=== PATIENT | female | born 1965 | race Caucasian/White ===

== ENCOUNTER → 2016-11-17 | Outpatient (CLI) | payer BC ==
[2016-11-17 11:04] LABS: HEMOGLOBIN A1C 6.41 % (4.2-6.0); MEAN BLOOD GLUCOSE (CALC) 127.453 mg/dL
[2016-11-17 11:14] LABS: CREATININE, URINE 103.6 MG/DL (15-500)
== END ==
LOC: MOB LAB 08:29
PROVIDERS: ATTEND Internal Medicine
DX: E11.9 Type 2 diabetes mellitus without complications (principal)
CPT/HCPCS: 82043; 83036

== ENCOUNTER → 2017-02-07 | Outpatient (CLI) | payer BC ==
--- NOTE | 2017-02-07 10:12 | DI ---
RIGHT FOOT, 02/07/2017 9:14 AM: Clinical History: Right foot pain. Previous Exam: None at this facility. 3 views are submitted. There is no acute soft tissue, osseous, or joint abnormality. There is a small bony density medial to the first tarsometatarsal joint, probably related to a previous injury versus an accessory ossicle. A similar bone density is present along the dorsal surface of the tarsal navic ular bone seen on the lateral view and this is consistent with previous injury. There are bone spurs at the attachment of the Achilles tendon and the plantar fascia to the calcaneus. Reading: No acute abnormalities are identified. The exam is otherwise normal.
== END ==
LOC: MOB RAD 09:21
PROVIDERS: ATTEND Physician Assistant Medical
DX: M79.671 Pain in right foot (principal); W22.8XXA Striking against or struck by other objects, initial encounter
CPT/HCPCS: 73630

== ENCOUNTER → 2017-05-03 | Outpatient (CLI) | payer BC ==
--- NOTE | 2017-05-03 17:57 | DI ---
LEFT KNEE, 05/03/2017 1:35 PM: Clinical History: Left knee injury. Previous Exam: None at this facility. 3 views are submitted. There is no acute soft tissue, osseous, or joint abnormality. There is narrowi ng of the medial compartment indicating the patient has degenerative arthritic change. Reading: There is no acute fracture or dislocation. There is medial compartment mild arthritic change.
== END ==
LOC: MOB RAD 13:41
PROVIDERS: ATTEND Nurse Practitioner Family
DX: S89.92XA Unspecified injury of left lower leg, initial encounter (principal); M17.12 Unilateral primary osteoarthritis, left knee
CPT/HCPCS: 73562

== ENCOUNTER → 2017-05-11 | Outpatient (CLI) | payer BC ==
--- NOTE | 2017-05-11 20:50 | DI ---
MRI LEFT KNEE SCAN, 05/11/2017 2:47 PM: Clinical History: Left knee injury. Previous Exam: None at this facility. Technique: Axial, coronal, and sagittal PD and fat saturated PD; axial T1 weighted. The dedicated kne e coil could not be used because of the BMI of the patient. There is no soft tissue edema. A large joint effusion is present with a lateral plica. There is synov itis in the suprapatellar bursa. No abnormal bone signal pattern is present. There is a tear along th e anterior margin of the medial collateral ligament as well as a tear in the patellofemoral ligament and medial retinaculum with attenuation. The patella is subluxed laterally. Intermediate signal inten sity is present in the lateral collateral ligament consistent with a chronic partial tear. There is i ntermediate signal intensity in the anterior aspect of both bundles of the anterior cruciate ligament consistent with a chronic partial tear of both bundles. Similar changes are present in the superior aspect of the posterior cruciate ligament. The medial and lateral menisci and the quadriceps and popl iteus tendons and the tendons of the medial and lateral heads of the gastrocnemius muscle are normal. There is tendinosis in the proximal and distal portions of the patellar tendon. There is a grade 2 a nd possibly a grade 3 chondromalacia involving the central portion of the medial femoral condyle. The articular surfaces of the lateral and patellofemoral compartments are intact. Readin. There are partial tears of the MCL, medial patellofemoral ligament, and the medial retinaculum wi th lateral subluxation of the patella. Chronic tears are present in the ACL and PCL. There is a grade 2 and possibly a grade 3 chondromalacia of the medial femoral condyle. Tendinosis is present in the proximal and distal portions of the patellar tendon. There is a large joint effusion with a lateral p lica and synovitis. 2. The LCL, the medial and lateral menisci, the quadriceps and popliteus tendons and the tendons of the medial and lateral heads of the gastrocnemius muscle are normal. The articular surfaces of the la teral compartment and patellofemoral compartments are intact.
== END ==
LOC: MRI 14:38
PROVIDERS: ATTEND Nurse Practitioner Family
DX: M25.562 Pain in left knee (principal); S89.92XD Unspecified injury of left lower leg, subsequent encounter; S83.412A Sprain of medial collateral ligament of left knee, initial encounter; M94.262 Chondromalacia, left knee; M25.462 Effusion, left knee
CPT/HCPCS: 73721

== ENCOUNTER → 2017-06-13 | Outpatient (CLI) | payer OTHER, BC ==
--- NOTE | 2017-06-19 18:54 | EKG ---
[address] [address] Measurements Intervals Crane Rate: 89 P: 66 TN: 161 QRS: 48 QRSD: 87 T: 52 QT: 363 QTc: 410 Interpretive Statements SINUS RHYTHM WITH OCCASIONAL VENTRICULAR PREMATURE COMPLEXES Compared to ECG 07/27/2015 17:23:53 No significant changes Electronically Signed On 06-20-17 08:49:11 MDT by Jefe Ortez [email or web address]
== END ==
LOC: EKG 14:00
PROVIDERS: ATTEND Orthopaedic Surgery
DX: I10 Essential (primary) hypertension (principal); E11.9 Type 2 diabetes mellitus without complications
CPT/HCPCS: 93005; 93010

== ENCOUNTER 2018-11-11 21:55 | Inpatient (IN) ==
[2018-11-11] MEDS ORDERED: ONDANSETRON 4 MG/2 ML VIAL IVP ONE (22:10)
[2018-11-11] MEDS ORDERED: NITROGLYCERIN 0.4 MG SL TAB (BOTTLE OF 3) SL ONE (22:10)
[2018-11-11] MEDS ORDERED: Sodium Chloride 0.9% 1,000 ML PRIMARY IV ONE (22:10)
[2018-11-11] MEDS ORDERED: MORPHINE SULFATE 4 MG/1 ML IVP ONE (22:10)
[2018-11-11] MEDS ORDERED: LORazepam 2 MG/1 ML VIAL IVP ONE (22:10)
--- NOTE | 2018-11-11 22:18 | PDOC ---
Chest Pain HPI - General Chief Complaint: Chest Pain Stated Complaint: CHEST PAIN Date Seen by Provider: 11/11/18 Time Seen by Provider: 22:00 Source: Patient, EMS Exam Limitations: POSITIVE: No limitations Treatment Prior to Arrival: REPORTS: Nitroglycerin, Aspirin Nurse's Notes Reviewed & Considered: Yes - History of Present Illness Initial Comments: This is a well-developed, obese, 53-year-old female, complaining of chest pain. Patient developed left substernal chest pressure with radiation to her back, jaw on the left, left shoulder, and left arm approximately 5 PM today she has associated shortness of breath and pain worsens when she takes deep breath. She took some Tylenol approximately one hour prior to presentation here in the emergency room without relief. She then called for EMS transport to the hospital. Patient had a lap band removal surgery performed on Monday. She denies any headache, no sore throat, no hematuria or dysuria. She does have nausea but no vomiting and no diarrhea. Body Location Affected: REPORTS: Chest Timing: REPORTS: Abrupt Duration: 4-6 hours Severity: Severe Context: REPORTS: Rest Quality: REPORTS: "Pain", Pressure Radiation: REPORTS: Jaw (L), Shoulder (L), Arm (L), Back Associated Symptoms: REPORTS: Nausea, Shortness of Breath, Hurts to Breathe Modifying Factors: improves with: None Reported Similar Symptoms Previously: No Recently seen/treated/hospitalized: Yes Any Prior Injuries Related to Current Complaint?: No - Patient Home Medications Home Medications: Home Medications Blood-Glucose Meter [Contour Next Ez] 1 ea [facility] #100 ea 06/08/17 nitroglycerin 0.4 mg sublingual tablet 0.4 mg SL Q5-15M PRN #6 tab 10/05/17 multivitamin capsule 1 cap PO QDAY 11/21/17 piroxicam 10 mg capsule 10 mg PO BID #10 cap 09/14/18 chlorthalidone 25 mg tablet 12.5 mg PO QDAY #90 tab 09/28/18 dapagliflozin 5 mg-metformin ER 1,000 mg tablet,extended release 24hr 1 tab PO BID #180 tab 09/28/18 gabapentin 300 mg capsule 300 mg PO BEDTIME #90 cap 09/28/18 levothyroxine 100 mcg tablet 100 mcg PO QDAY #90 tab 09/28/18 liraglutide 0.6 mg/0.1 mL (18 mg/3 mL) subcutaneous pen injector 1.2 mg SUBCUT DAILY #9 ml 09/28/18 lorazepam 1 mg tablet 2 mg PO QPM PRN #60 tab 09/28/18 methocarbamol 750 mg tablet 750 mg PO TID PRN #90 tab 09/28/18 metoprolol tartrate 100 mg tablet 100 mg PO QDAY #90 tab 09/28/18 quinapril 40 mg tablet 40 mg PO BID #180 tab 09/28/18 rizatriptan 10 mg tablet 10 mg PO PRN #9 tab 09/28/18 simvastatin 40 mg tablet 40 mg PO QHS #90 tab 09/28/18 vilazodone 40 mg tablet 40 mg PO QDAY #90 tab 09/28/18 zolpidem 10 mg tablet 10 mg PO QHS PRN #90 tab 09/28/18 sulfamethoxazole 800 mg-trimethoprim 160 mg tablet 1 tab PO BID #20 tab 10/29/18 hydrocortisone 2.5 % topical cream 1 applic TOPICAL BID-QID PRN #20 g 11/01/18 Insulin Glargine,Hum.rec.anlog [Tojoe Apple] 20 unit SUBCUT QHS 11/09/18 Blood Sugar Diagnostic [Contour Next Test Strips] 0 unit .ROUTE .MEDSUPPLY 11/12 - Patient Allergies Allergies/Adverse Reactions: Allergies Allergy/AdvReac Type Severity Reaction Status Date / Time erythromycin base Allergy Intermediate HIVES Verified 11/11/18 21:58 pentazocine lactate Allergy Intermediate HIVES Verified 11/11/18 21:58 [From Talwin] suvorexant [From Belsomra] Allergy ITCHING Verified 11/11/18 21:58 Past Medical History - heen HEENT History: Other (please comment) Additional HEENT History: wear glasses Cardiovascular History: Hypertension, Hyperlipidemia Respiratory History: Asthma, Pneumonia, Sleep Apnea, Home Oxygen Use, Home CPAP Use, Snoring Additional Respiratory History: 3L of 02 at night Gastrointestinal History: Diverticulitis, Other (please comment) Additional Gastrointestinal History: lapband surgery 2009, Colectomy Genitourinary History: Denies History Endocrine History: Type 2 Diabetes (oral), Hypothyroidism Musculoskeletal History: Arthritis, Back Pain, Joint Pain, Osteoarthritis Prosthesis or Implant: Yes (SCREW TO RIGHT KNEE AND LEFT ANKLE) Neurological History: Migraines Additional Neurological History: peripheral neuropathy Blood Disorders: Denies History Psychiatric History: Depression, Anxiety Disorders History of Sexually Transmitted Diseases: No Cancer History: Denies History, Other (please comment) Cancer Treatment / Date(s) of Treatment: 1992 History of MDRO: No History of Other Communicable Diseases: Yes (measles, mumps, chicken pox) Alcohol Use: Rarely In the Past 12 Months, Have Used or Abuse Any Substance: None Previous Surgical History: Yes Type / Date of Surgery: right KNEE ACL reconstruction, left ankle surgery, right shoulder scope, LAPBAND SURGERY, SPLENECTOMY, FULL HYSTERECTOMY, tonsillectomy, appendectomy, cholecystectomy, COLONOSCOPY, colectomy Anesthesia Reactions: Yes (PONV) Malignant Hyperthermia: No Significant Family History: Heart disease Additional Family History: mitral valve prolapse-sister. valve replacement- mother ROS - Limitations ROS Limitations: No Limitations Constitution: REPORTS: Denies Symptoms Cardiovascular: REPORTS: Chest Pain Respiratory: REPORTS: Hurts To Breathe, Shortness Of Breath Neurological: REPORTS: Denies Neuro Symptoms Gastrointestinal: REPORTS: Abdominal Pain, Nausea Endocrine: REPORTS: Denies Symptoms Musculoskeletal: REPORTS: Back Pain Genitourinary: REPORTS: Denies Symptoms Eyes: REPORTS: Denies Symptoms ENT: REPORTS: Denies Symptoms Skin: REPORTS: Denies Skin Symptoms Lympathic: REPORTS: Denies Lympathic Symptoms Immunologic: POSITIVE: Denies Symptoms Psychiatric: POSITIVE: Anxiety Chest Pain PE - General Appearance General Appearance: REPORTS: Alert, Cooperative, No Evidence of Trauma, Severe Distress - HEENT HEENT: POSITIVE: Head Inspection Nml, Eyes Inspection Nml, Ears Inspection Nml, Nose Inspection Nml, Oral/Dental Inspect. Nml, Pharynx Inspect. Nml, PERRL, EOMI - Neck Neck: REPORTS: Normal Inspection - Respiratory Respiratory: REPORTS: No Respiratory Distress, Breath Sounds Normal - Cardiovascular Cardiovascular: REPORTS: Regular Rate and Rhythm, Heart Sounds Normal, Equal Pulses, Strong Pulses, No Murmur, No Gallop, No Friction Rub, No JVD Peripheral Pulses: Radial (L): 4+ - Abdomen Abdomen: Soft: (All Quadrants), Normal Bowel Sounds: (All Quadrants), No Splenomegaly: (All Quadrants), No Hepatomegaly: (All Quadrants), No Guarding: (All Quadrants), No Rebound: (All Quadrants), No Palpable Pulse: (All Quadrant s), No Palpabale Mass: (All Quadrants), No Distention: (All Quadrants), No Rigidity: (All Quadrants), Tenderness Noted: (All Quadrants) - Skin Skin: REPORTS: Intact, Normal For Race, Warm, Dry, No Rash - Extremities Extremity: Non-Tender: (All Extremities), Normal ROM: (All Extremities), Normal Inspection: (All Extremities), Pelvis Stable: (All Extremities) - Neurological / Psychological Neurological: POSITIVE: Oriented X3, Motor Normal, Sensation Normal Chest Pain Progress - Results Reviewed by me Xrays/CTs/US Reviewed by me: Yes Discussed with Radiologist: Yes Lab Results Reviewed by Me: Yes CBC and BMP: 11/11/18 22:24 11/11/18 22:24 Lab Results:: Laboratory Results 11/11/18 11/11/18 11/11/18 22:24 22:24 22:24 WBC 14.86 H RBC 4.49 Hgb 14.3 Hct 43.6 MCV 97.1 MCH 31.8 H MCHC 32.8 L RDW Std Deviation 50.6 H RDW Coeff of Sd 14.6 H Plt Count 366 H MPV 10.4 Immature Gran % (Auto) 0.2 Neut % (Auto) 73.3 Lymph % (Auto) 12.7 [place] % (Auto) 7.0 Eos % (Auto) 6.6 Baso % (Auto) 0.2 Immature Gran # (Auto) 0.03 Neut # (Auto) 10.90 Lymph # (Auto) 1.88 [place] # (Auto) 1.04 H Eos # (Auto) 0.98 Baso # (Auto) 0.03 WBC Morphology Comment Normal morphology Plt Morphology Comment Normal morphology RBC Morph Comment Normal morphology D-Dimer 2.12 H Sodium 139 Potassium 4.3 Chloride 101 Carbon Dioxide 30 Anion Gap 8 BUN 12 Creatinine 0.7 Estimated GFR > 60 BUN/Creatinine Ratio 17.14 Glucose 176 H Calculated Osmolality 291.0 Calcium 9.0 Total Bilirubin 0.5 AST 53 H ALT 87 H Alkaline Phosphatase 91 CK-MB (CK-2) Troponin I Handheld C-Reactive Protein 5.5 H NT-Pro-B Natriuret Pep 158 H Total Protein 6.2 Albumin 3.7 Globulin 2.5 Albumin/Globulin Ratio 1.40 TSH 11/11/18 11/11/18 22:24 22:24 WBC RBC Hgb Hct MCV MCH MCHC RDW Std Deviation RDW Coeff of Sd Plt Count MPV Immature Gran % (Auto) Neut % (Auto) Lymph % (Auto) [place] % (Auto) Eos % (Auto) Baso % (Auto) Immature Gran # (Auto) Neut # (Auto) Lymph # (Auto) [place] # (Auto) Eos # (Auto) Baso # (Auto) WBC Morphology Comment Plt Morphology Comment RBC Morph Comment D-Dimer Sodium Potassium Chloride Carbon Dioxide Anion Gap BUN Creatinine Estimated GFR BUN/Creatinine Ratio Glucose Calculated Osmolality Calcium Total Bilirubin AST ALT Alkaline Phosphatase CK-MB (CK-2) 0.38 Troponin I Handheld 0.010 C-Reactive Protein NT-Pro-B Natriuret Pep Total Protein Albumin Globulin Albumin/Globulin Ratio TSH 2.15 EKG Interpreted/Reviewed By Me:: Yes (normal sinus rhythm with rate of 77 beats a minute.) EKG Interpretation:: POSITIVE: Normal Sinus Rhythm, Normal ST/T - Patient's Progress Pain Medication Addressed: POSITIVE: Yes Re-Examine Time: 01:07 Status: POSITIVE: Improved MDM / ED Course: Patient was evaluated, an IV started, blood drawn and sent to the lab for studies, CT examination of chest and abdomen as well as EKG were obtained. Findings: CBC shows white count of 14.86 and platelets are 366. D-dimer is elevated at 2.12. TSH is normal at 2.15. CMP shows glucose of 176, AST of 53, ALT of 87. CRP is elevated at 5.5 area BNP is 158. Chest x-ray shows no acute cardiopulmonary decompensation. CTA of the chest shows no pulmonary embolism present, there is a small left pleural effusion. Respiratory panel is negative. Troponin and CK-MB are normal. EKG as interpreted by me, shows a sinus rhythm with a rate of 77 beats a minute and no ST changes. CT of the abdomen shows large amount of free air likely postsurgical, small high density foci on the left upper quadrant possibly related to remote splenectomy, multiple small pockets of hematoma adjacent to the stomach, no bowel obstruction, remote cholecystectomy and appendectomy. Assessment: #1 Chest pain with normal enzymes and EKG. #2 postoperative abdominal pain. Plan: Patient is being admitted to rule out GA. Quality Measure Initiative: CP/AMI: POSITIVE: EKG, ASA Quality Measure Initiative: CAP: POSITIVE: CXR or CT - Consult Consult (If Yes, Name of Consulting MD & Time Called): Yes (Dr. Marquez, 0100 hrs) Consulting MD will see pt:: POSITIVE: [facility] Admit Counseled: POSITIVE: Patient, Family, RE: Lab Results, RE: Radiology Results, RE: DX, RE: Need for F/U Patient Care Time - Estimated PCT Patient Care Time (In Minutes): 60 Vital Signs - Recent Vital Signs Vital Signs: Vital Signs (Last 8 hours) Temp Pulse Resp BP Pulse Ox 11/11/18 21:57 98.0 F 76 20 138/87 90 - VS Reviewed Vital Signs Reviewed: Yes Discharge Clinical Impression: Chest pain Discharge Disposition: Admit to Inpatient Condition: Stable Patient Instructions Given at Discharge: Chest Pain (ED) Follow Up With: EDWARD REA [Primary Care Provider] - Date Decision to Admit to Inpatient: 11/12/18 Time Decision to Admit to Inpatient: 01:07
[2018-11-11 22:26] LABS: BASOPHILS # (AUTO) 0.03 10*3/UL; BASOPHILS % (AUTO) 0.2 % (0-1); EOSINOPHILS # (AUTO) 0.98 10*3/UL; EOSINOPHILS % (AUTO) 6.6 % (0-8); Hematocrit [HCT] 43.6 % (37.0-47.0); Hemoglobin [HGB] 14.3 g/dL (12.0-16.0); LYMPHOCYTES # (AUTO) 1.88 10*3/uL; MEAN CORPUSCULAR HEMOGLOBIN 31.8 PG (27-31); MEAN CORPUSCULAR HGB CONC 32.8 g/dL (33-37); MEAN CORPUSCULAR VOLUME 97.1 FL (81-99); MEAN PLATELET VOLUME 10.4 FL (7.4-12.2); MONOCYTES # (AUTO) 1.04 10*3/UL (0.3-0.8); NEUTROPHILS % (AUTO) 73.3 % (50-80); RED BLOOD COUNT 4.49 10^6/uL (4.20-5.40)
[2018-11-11 22:30] LABS: PLATELET MORPHOLOGY COMMENT NORMAL MORPHOLOGY (NORM); RBC MORPHOLOGY COMMENT NORMAL MORPHOLOGY (NORM); WBC MORPHOLOGY COMMENT NORMAL MORPHOLOGY (NORM)
[2018-11-11 22:43] LABS: BLOOD UREA NITROGEN 12 mg/dL (7-22); BUN/CREATININE RATIO 17.14 (6-20); SERUM ALBUMIN 3.7 g/dL (3.5-4.8)
[2018-11-12] MEDS ORDERED: MORPHINE SULFATE 4 MG/1 ML IVP ONE (00:35)
[2018-11-12] MEDS ORDERED: KETOROLAC 15 MG/1 ML VIAL IVP ONE (00:35)
--- NOTE | 2018-11-12 00:45 | DI ---
EXAM: XR Chest, 1 View CLINICAL HISTORY: cp TECHNIQUE: Frontal view of the chest. COMPARISON: January 02, 2018. FINDINGS: Lungs: Unremarkable. No consolidation. Pleural space: Unremarkable. No pneumothorax. Heart: Unremarkable. No cardiomegaly. Mediastinum: Unremarkable. Bones/joints: Unremarkable. There is free air subjacent to the right hemidiaphragm. IMPRESSION: Free air subjacent to the left hemidiaphragm. This represent sequela of bowel perforation or recent surgery. No acute cardiopulmonary process. [employer] 11/12/18 00:57 Call Doctor Regarding Above results, called Dr. Aleksandar Mccarthy on 11/12 00:58 (-07:00)
--- NOTE | 2018-11-12 00:51 | DI ---
EXAM: CT Angiography Chest With Intravenous Contrast CLINICAL HISTORY: cp/sob TECHNIQUE: Axial computed tomographic angiography images of the chest with intravenous contrast using pulmonary embolism protocol. MIP reconstructed images were created and reviewed. COMPARISON: No relevant prior studies available. FINDINGS: Normal caliber thoracic aorta. No pericardial effusion. Patchy atelectasis in the bilateral lower lobes. Small left pleural effusion. No central PE. More peripheral branches are suboptimally evaluated due to respiratory motion. There is free air in the upper abdomen. IMPRESSION: No central PE. More peripheral branches are suboptimally evaluated due to respiratory motion. Bilateral lower lobe patchy atelectasis. Small left pleural effusion. Free air in the upper abdomen. See separate report for CT of the abdomen and pelvis.
--- NOTE | 2018-11-12 01:07 | DI ---
EXAM: CT Abdomen and Pelvis With Intravenous Contrast CLINICAL HISTORY: pain s/p surgery on Monday TECHNIQUE: Axial computed tomography images of the abdomen and pelvis with intravenous contrast. COMPARISON: No relevant prior studies available. FINDINGS: Reported history of lap band removal surgery 2 days prior. There is large amount of free air. There is some stranding, edema, and complex free fluid in the left upper quadrant. Small high density foci subjacent to the left hemidiaphragm, for example on image 27 of series 2. Additionally, there are small pockets of complex fluid noted adjacent to the proximal stomach, for example on image 40 of series 20, measuring approximately 3 x 2 cm in the largest component. Remote splenectomy and cholecystectomy. Liver, pancreas, adrenals, and kidneys are within normal limits. Diverticulosis without evidence of diverticulitis. No bowel obstruction. Appendectomy clips. Absent uterus. Normal caliber abdominal aorta. Stranding and edema in the anterior abdominal wall, expected postsurgically. No aggressive osseous abnormalities. IMPRESSION: Reported history of lap band removal surgery 2 days prior. There is large amount of free air, which is likely postsurgical. However, if there is increasing abdominal pain and distention and peritoneal signs, leak/perforation cannot be definitively excluded. There is small amount of complex free fluid in the left upper quadrant. Small high density foci in the left upper quadrant may be related to remote splenectomy. Active extravasation is considered less likely given that there is only a small amount of complex free fluid without evidence of hemoperitoneum in the remainder of abdomen and pelvis. Multiple small pockets of hematoma adjacent to the stomach. Abscess is considered less likely. Recommend followup. No bowel obstruction. Remote cholecystectomy and appendectomy. No hydronephrosis. [employer] 11/12/18 00:57 Call Doctor Regarding Above results, called Dr. Aleksandar Mccarthy on 11/12 00:58 (-07:00)
[2018-11-12] MEDS ORDERED: MORPHINE SULFATE 2 MG/1 ML IVP PRN ×2 (01:19→16:53)
--- NOTE | 2018-11-12 01:25 | PDOC ---
HPI - History of Present Illness History of Present Illness: This is a very nice 53-year-old female comes into the ER with the complaint of chest pain this started the abruptly mainly on the left side of the chest with p ressure and radiation to her back and jaw, left shoulder, left R arm also has shortness of breath with it and hurts to take a deep breath EMS was called and transported to the hospital patient had a lap band removal surgery performed on Monday. She received aspirin and nitroglycerin so received the Toradol and Ativan which helped with her pain and anxiety Past Medical History Medical History: 1. Diabetes mellitus type II. 2. Hypertension. 3. Hypothy roidism. 4. Obesity. 5. Hypercholesterolemia. 6. Diverticular disease. Surgical History: 1. Left hemicolectomy today. 2. Hysterectomy. 3. Lap band surgery. 4. Cholecystectomy. 5. 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 Tobacco Use: Never Smoker In the Past 12 Months, Have Used or Abuse Any of the Following Substance: None Medication / Allergies Home Medications: Home Medications Medication Instructions Recorded Confirmed Type Blood-Glucose Meter [Contour Next 1 ea AC #100 ea 06/08/17 11/12/18 Rx Ez] nitroglycerin 0.4 mg sublingual 0.4 mg SL Q5-15M PRN #6 tab 10/05/17 11/12/18 Rx tablet multivitamin capsule 1 cap PO QDAY 11/21/17 11/12/18 History piroxicam 10 mg capsule 10 mg PO BID #10 cap 09/14/18 11/12/18 Rx chlorthalidone 25 mg tablet 12.5 mg PO QDAY #90 tab 09/28/18 11/12/18 Rx dapagliflozin 5 mg-metformin ER 1 tab PO BID #180 tab 09/28/18 11/12/18 Rx 1,000 mg tablet,extended release 24hr gabapentin 300 mg capsule 300 mg PO BEDTIME #90 cap 09/28/18 11/12/18 Rx levothyroxine 100 mcg tablet 100 mcg PO QDAY #90 tab 09/28/18 11/12/18 Rx liraglutide 0.6 mg/0.1 mL (18 mg/3 1.2 mg SUBCUT DAILY #9 ml 09/28/18 11/12/18 Rx mL) subcutaneous pen injector lorazepam 1 mg tablet 2 mg PO QPM PRN #60 tab 09/28/18 11/12/18 Rx methocarbamol 750 mg tablet 750 mg PO TID PRN #90 tab 09/28/18 11/12/18 Rx metoprolol tartrate 100 mg tablet 100 mg PO QDAY #90 tab 09/28/18 11/12/18 Rx quinapril 40 mg tablet 40 mg PO BID #180 tab 09/28/18 11/12/18 Rx rizatriptan 10 mg tablet 10 mg PO PRN #9 tab 09/28/18 11/12/18 Rx simvastatin 40 mg tablet 40 mg PO QHS #90 tab 09/28/18 11/12/18 Rx vilazodone 40 mg tablet 40 mg PO QDAY #90 tab 09/28/18 11/12/18 Rx zolpidem 10 mg tablet 10 mg PO QHS PRN #90 tab 09/28/18 11/12/18 Rx sulfamethoxazole 800 1 tab PO BID #20 tab 10/29/18 11/12/18 Rx mg-trimethoprim 160 mg tablet hydrocortisone 2.5 % topical cream 1 applic TOPICAL BID-QID PRN #20 g 11/01/18 11/12/18 Rx Insulin Glargine,Hum.rec.anlog 20 unit SUBCUT QHS 11/09/18 11/12/18 History [Oralia Apple] Blood Sugar Diagnostic [Contour 0 unit .ROUTE .MEDSUPPLY 11/12/18 11/12/18 History Next Test Strips] Allergies/Adverse Reactions: Allergies Allergy/AdvReac Type Severity Reaction Status Date / Time erythromycin base Allergy Intermediate HIVES Verified 11/11/18 21:58 pentazocine lactate Allergy Intermediate HIVES Verified 11/11/18 21:58 [From Talwin] suvorexant [From Belsomra] Allergy ITCHING Verified 11/11/18 21:58 Review of Systems - Review of Systems All Systems: Reviewed & No Additional Complaints Except as Stated - Constitutional Constitutional: REPORTS: General Health Fair - Respiratory Respiratory: REPORTS: Pleuritic Pain. DENIES: Cough - Cardiovascular Cardiovascular: REPORTS: Chest Pain. DENIES: Edema, Syncope, Palpitations - Gastrointestinal Gastrointestinal / Abdominal: REPORTS: Nausea. DENIES: Vomiting, Diarrhea, Constipation, Abdominal Pain, Bloody Stool Exam - Vitals Vital Signs: Vital Signs Temperature 98.0 F Temperature Source Temporal Artery Scan Pulse Rate [Pulse Oximeter] 76 Respiratory Rate 20 Blood Pressure [Right Arm] 138/87 Pulse Ox 90 Oxygen Flow Rate 3 Oxygen Delivery Method Nasal Cannula Height 5 ft 2 in Weight 295 lb - General General Appearance: Cooperative, Mild Distress, Morbidly Obese - Head Head Exam: Normal Inspection, Normocephalic, Atraumatic - Eye Eye Exam: POSITIVE: Normal Appearance, PERRL, EOMI, No Scleral Icterus - Neck Neck Exam: Normal Inspection, Full ROM, No Tenderness, No Lymphadenopathy, No Thyromegaly, JVP is not Raised - Respiratory Respiratory Exam: POSITIVE: Clear to Auscultation - Bilaterally, Breathing Non Labored, Normal To Percussion, Normal to Percussion and Palpation - Cardiovascular Cardiovascular Exam: POSITIVE: RRR, No Murmur, No Clicks, No Gallops, No Rubs, PMI Non-Displaced - GI/Abdominal GI/Abdominal Exam: POSITIVE: Normal Bowel Sounds, Non Tender, Non Distended, Soft, No Masses, No Hepatomegaly, No Splenomegaly, No Organomegaly - Extremities Extremities Exam: POSITIVE: No Clubbing Present, No Edema Present, No Cyanosis Present - Neurological Neurological Exam: POSITIVE: Alert, Oriented x 3, No Facial Droop, Speech Intact / Clear, Moves All Extremities Equally Results - Labs CBC and BMP: 11/11/18 22:24 11/11/18 22:24 Assessment and Plan - Patient Problems (1) Chest pain Current Visit: Yes Status: Acute Comment: CT of the chest no PE troponins and negative she did have a stress test last year which was positive with reversible defects apparently this was a false positive patient did have a catheter I do not see those results are unable to find them was admit the patient to rule out with serial troponins treat pain h ydrate Lexiscan stress test in a.m. This can therefore be secondary to lap band removal with nerve irritation as well we'll consider other diagnoses once cardiac issues have been ruled out spoke with patient and her Evelyne her friend at the bedside and Dr. Mccarthy Code(s): R07.9 - Chest pain, unspecified
[2018-11-12] MEDS ORDERED: CALCIUM CARBONATE 500 MG (TUMS) CHEWABLE TABLET PO PRN (01:44)
[2018-11-12] MEDS ORDERED: Methocarbamol Tab 500 MG TAB PO PRN (01:44)
[2018-11-12] MEDS ORDERED: NITROGLYCERIN 0.4 MG SL TAB (BOTTLE OF 3) SL PRN ×2 (01:44)
[2018-11-12] MEDS ORDERED: Non-Formulary Drug (Rizatriptan Benzoate [Maxalt] 10 MG) PO PRN (01:44)
[2018-11-12] MEDS ORDERED: ZOLPIDEM 10 MG TABLET PO PRN (01:44)
[2018-11-12] MEDS ORDERED: LIDOCAINE W/ SODIUM BICARB 0.5 ML SYR SUBD PRN (01:44)
[2018-11-12] MEDS: HEPARIN 5000 UNIT/1 ML SUBCUT SCH ×3 (02:22→19:12)
[2018-11-12] MEDS: MORPHINE SULFATE 2 MG/1 ML IVP PRN ×3 (03:17→09:40)
[2018-11-12] MEDS: Sodium Chloride 0.9% 1,000 ML PRIMARY IV SCH ×3 (04:08→23:55)
[2018-11-12 05:08] LABS: BASOPHILS # (AUTO) 0.04 10*3/UL; BASOPHILS % (AUTO) 0.3 % (0-1); EOSINOPHILS # (AUTO) 1.02 10*3/UL; EOSINOPHILS % (AUTO) 7.2 % (0-8); Hematocrit [HCT] 43.6 % (37.0-47.0); LYMPHOCYTES # (AUTO) 2.62 10*3/uL; MEAN CORPUSCULAR HEMOGLOBIN 31.3 PG (27-31); MEAN CORPUSCULAR HGB CONC 32.1 g/dL (33-37); MEAN CORPUSCULAR VOLUME 97.3 FL (81-99); MEAN PLATELET VOLUME 11.4 FL (7.4-12.2); MONOCYTES # (AUTO) 1.09 10*3/UL (0.3-0.8); MONOCYTES % (AUTO) 7.7 % (5-15); NEUTROPHILS # (AUTO) 9.39 10*3/UL; NEUTROPHILS % (AUTO) 66.1 % (50-80); RED BLOOD COUNT 4.48 10^6/uL (4.20-5.40)
[2018-11-12 05:19] LABS: PLATELET MORPHOLOGY COMMENT NORMAL MORPHOLOGY (NORM); RBC MORPHOLOGY COMMENT NORMAL MORPHOLOGY (NORM); WBC MORPHOLOGY COMMENT NORMAL MORPHOLOGY (NORM)
[2018-11-12 05:20] LABS: BLOOD UREA NITROGEN 12 mg/dL (7-22); SERUM ALBUMIN 3.6 g/dL (3.5-4.8)
[2018-11-12] MEDS: LEVOTHYROXINE 100 MCG TABLET PO SCH (05:39)
[2018-11-12] MEDS ORDERED: SULFAMETHOXAZOLE/TRIMETHOPRIM 800/160 MG TABLET PO SCH (09:00)
[2018-11-12] MEDS ORDERED: METFORMIN HCL PO SCH (09:00)
[2018-11-12] MEDS ORDERED: DAPAGLIFLOZIN PO SCH (09:00)
[2018-11-12] MEDS ORDERED: methylPREDNISolone 125 MG/2 ML VIAL IVP ONE (10:28)
--- NOTE | 2018-11-12 10:31 | PDOC(PROG) ---
Interval History: Patient looks much better than yesterday still having chest pain. When examined and I pushed on her sternum this reproduced the pain on the left side of her body but not on the right side no nausea no vomiting no shortness of breath able to take deeper breaths without pain Objective : Data - Labs CBC and BMP: 11/12/18 04:20 11/12/18 04:20 Objective : Exam - General General Appearance: Cooperative, Obese - Respiratory Respiratory Exam: Clear to Auscultation - Bilaterally, Breathing Non Labored, Normal To Percussion, Normal to Percussion and Palpation - Cardiovascular Cardiovascular Exam: RRR, No Murmur, No Clicks, No Gallops, No Rubs, PMI Non- Displaced - GI/Abdominal GI/Abdominal Exam: Normal Bowel Sounds, Non Tender, Non Distended, Soft, No Masses, No Hepatomegaly, No Splenomegaly, No Organomegaly Assessment and Plan - Patient Problems (1) Chest pain Current Visit: Yes Status: Acute Code(s): R07.9 - Chest pain, unspecified (2) Costochondral chest pain Current Visit: Yes Status: Acute Code(s): R07.1 - Chest pain on breathing (3) Costochondritis Current Visit: Yes Status: Acute Comment: Most likely this is the diagnosis considering pain is reproducible with palpation with same intensity as her usual chest pain this could've come on from her lap band removal I will give her 1 dose of steroids to see if this helps CT of the chest abdomen and pelvis pre-much no acute changes other than the air which is attributed to recent surgery stress test today and tomorrow morning at 8:30. She did have a stress test 1 year ago patient tells me it was a false positive since her catheter was negative Code(s): M94.0 - Chondrocostal junction syndrome [Tietze]
[2018-11-12] MEDS: LIRAGLUTIDE 1.2 MG SUBCUT SCH (11:02)
[2018-11-12] MEDS: QUINAPRIL 20 MG TABLET PO SCH ×2 (11:02→23:32)
[2018-11-12] MEDS: Metoprolol TARTRATE Tab 50 MG TAB PO SCH (11:02)
[2018-11-12] MEDS: CHLORTHALIDONE 50 MG TABLET PO SCH (11:02)
[2018-11-12] MEDS: VILAZODONE HCL 40 MG PO SCH (11:03)
[2018-11-12] MEDS: PANTOPRAZOLE IV 40 MG VIAL IVP SCH (11:03)
[2018-11-12 11:16] LABS: BILIRUBIN,URINE NEGATIVE (NEG); CLARITY,URINE CLEAR (CLEAR); COLOR,URINE YELLOW (Y); GLUCOSE, URINE (UA) NEGATIVE (NEG); OCCULT BLOOD,URINE NEGATIVE (NEG); PH,URINE 6.5 (5.0-8.5); PROTEIN,URINE NEGATIVE (NEG); UROBILINOGEN,URINE 0.2 EU/dL (0.2)
[2018-11-12 11:17] LABS: URINE SAMPLE TYPE CLEAN CATCH URINE
[2018-11-12] MEDS ORDERED: cefTRIAXone Inj 2 GM in Sodium Chloride 0.9% 100 ML IV SCH (13:00)
[2018-11-12] MEDS ORDERED: LIDOCAINE HCL 2 % 10 ML JELLY URO-JECT TOPICAL PRN (13:28)
[2018-11-12] MEDS ORDERED: FUROSEMIDE 10 MG/1 ML - 4 ML IVP ONE (13:29)
[2018-11-12 13:31] LABS: ABG BASE EXCESS 4 MMOL/L (-2-2); ABG OXYGEN SATURATION 94 % (90-100); ABG PCO2 52 MMHG (34-38); ABG PH 7.36 (7.35-7.45); ABG PO2 75 MMHG (65-75); ALLEN TEST N; COLLECTION SITE L RADIAL
[2018-11-12] MEDS ORDERED: Acetaminophen 1000mg Inj 1,000 MG/100 ML VIAL IV PRN (13:33)
--- NOTE | 2018-11-12 13:54 | EKG ---
[address] [address] Measurements Intervals Hansen Rate: 77 P: 21 RI: 177 QRS: 9 QRSD: 90 T: 17 QT: 370 QTc: 401 Interpretive Statements SINUS RHYTHM LOW QRS VOLTAGE IN PRECORDIAL LEADS [QRS DEFLECTION < 1.0 mV IN CHEST LEADS] [email or web address]
[2018-11-12 14:23] LABS: BASOPHILS # (AUTO) 0.02 10*3/UL; BASOPHILS % (AUTO) 0.1 % (0-1); EOSINOPHILS # (AUTO) 0.73 10*3/UL; EOSINOPHILS % (AUTO) 4.4 % (0-8); Hematocrit [HCT] 45.1 % (37.0-47.0); Hemoglobin [HGB] 14.7 g/dL (12.0-16.0); LYMPHOCYTES # (AUTO) 1.89 10*3/uL; MEAN CORPUSCULAR HEMOGLOBIN 31.7 PG (27-31); MEAN CORPUSCULAR HGB CONC 32.6 g/dL (33-37); MEAN CORPUSCULAR VOLUME 97.2 FL (81-99); MEAN PLATELET VOLUME 11.1 FL (7.4-12.2); MONOCYTES # (AUTO) 0.77 10*3/UL (0.3-0.8); MONOCYTES % (AUTO) 4.6 % (5-15); NEUTROPHILS % (AUTO) 79.1 % (50-80); RED BLOOD COUNT 4.64 10^6/uL (4.20-5.40)
[2018-11-12 14:24] LABS: PLATELET MORPHOLOGY COMMENT NORMAL MORPHOLOGY (NORM); RBC MORPHOLOGY COMMENT NORMAL MORPHOLOGY (NORM); WBC MORPHOLOGY COMMENT NORMAL MORPHOLOGY (NORM)
[2018-11-12 14:31] LABS: BLOOD UREA NITROGEN 10 mg/dL (7-22); BUN/CREATININE RATIO 16.66 (6-20); SERUM ALBUMIN 3.8 g/dL (3.5-4.8)
[2018-11-12] MEDS ORDERED: Ertapenem Inj 1 GM in Sodium Chloride 0.9% 100 ML IV SCH (16:00)
[2018-11-12] MEDS ORDERED: ERTAPENEM 1 GM VIAL ONE (16:12)
--- NOTE | 2018-11-12 16:48 | DI ---
CT CTA Chest Non-Coronary WWO 11/12/2018 12:57 PM History: [facility] [place]st pain Comparison: Chest x-ray, CT PE from 11/11/2018. Procedure: CT angiography of the pulmonary arteries was performed after the administration of 68 mL o f Isovue intravenous contrast. Findings: Patient body habitus creates artifact that limits evaluation of fine anatomic detail. There is normal opacification of the main and proximal segmental pulmonary arteries with no evidence of fi lling defect. Evaluation of the lungs demonstrates bilateral lower lobe atelectasis; associated airsp sarah disease cannot be excluded. There are small left and tiny right pleural effusions. There is no pn eumothorax. There is no mediastinal or hilar lymphadenopathy. The aorta and branch vessels demonstrat e normal course and caliber. Heart size is is at the upper limits of limits with no pericardial effus ion. The thyroid exhibits normal CT morphology. The osseous structures not significantly changed. There is no evidence of acute or healing rib fractu res. Impression: 1. No main or proximal segmental pulmonary embolism. 2. Bilateral lower lobe atelectasis; associated airspace disease cannot be excluded. There are small left and tiny right pleural effusions. There is no pneumothorax. 3. Borderline cardiomegaly without pericardial effusion.
--- NOTE | 2018-11-12 16:58 | DI ---
CT Abdomen/Pelvis W Contrast 11/12/2018 12:57 PM History: [facility] [place] Comparison: CT abdomen/pelvis from the previous day. Technique: Imaging was performed with a multi-detector CT scanner. Data acquisition was obtained from the dome of the diaphragm through the pubic symphysis without oral contrast and after the uneventful administration of 68 mL of Isovue intravenous contrast material. Multiplanar reformations were perfo rmed. Findings: There are postsurgical changes in the left upper quadrant adjacent to the gastric fundus, a s well as the ventral abdominal wall. The spleen is absent. There is an increased amount of free intr aperitoneal air, most notable along the anterior aspect of the liver. A heterogeneous collection of f luid and gas in the left upper quadrant, posterior to the fundus of the stomach is slightly larger th an the prior examination. There are surgical clips in the gallbladder fossa. There is gas in the tacho hepatis. There is normal CT appearance of the liver, adrenal glands, kidneys, and pancreas. Hollow viscus organs demonstrate otherwise normal course and caliber. There is colonic diverticulosis without CT evidence of acute div erticulitis. Surgical material is again noted in the right lower quadrant. No abdominopelvic lymphade nopathy is present. Vascular structures are intact. There is a fat and gas containing umbilical herni a. There is a Paulson catheter in the decompressed urinary bladder. The uterus is absent. There is surg ical material in the adnexa, which are better evaluated with pelvic ultrasound. The osseous structures are not significantly changed. Impression: 1. There are postsurgical changes in the left upper quadrant. There is an increased amount of free in traperitoneal air and a slightly larger collection of fluid and gas in the left upper quadrant engraving supervisor ior to the fundus of the stomach. These findings raise concern for hollow viscus perforation in the r eported setting of recent surgical intervention.
--- NOTE | 2018-11-12 18:36 | PDOC(PROG) ---
Date of Service: 11/12/18 Time of Service: 18:33 Interval History: This is a 53-year-old female who was admitted on second postoperative day after having removal of a gastric band. She is doing fine initially but on Monday developed down pain and shortness of breath. Patient had a CTA which showed no evidence of PE. Patient has CT scan of the abdomen showed free air which measures thought to be postoperative changes. Patient continue to have an elevated white count and increasing abdominal pain and shortness of breath. Repeat films show that the patient has more free air. There is still no evidenc e of PEs. Her surgeon, Dr. Villegas, quantity Gastrografin swallow to see if again identified with the leak is from because of her size and said do a Gastrografin followed by CT scan. The CT scan now shows of leak of fluid in the fundus of the stomach with the previous band was. Objective : Data - Labs CBC and BMP: 11/12/18 14:05 11/12/18 14:05 - Vital Signs Vital Signs and I&O: Vital Signs - Last Taken Temperature 98.1 F 11/12/18 11:04 Pulse Rate 104 H 11/12/18 11:04 Respiratory Rate 24 11/12/18 11:04 Blood Pressure 136/98 11/12/18 11:04 Pulse Ox 94 11/12/18 15:10 Intake and Output (24hr x 4 totals) 11/10/18 11/11/18 11/12/18 11/13/18 05:59 05:59 05:59 05:59 Intake Total 900 / 900 900 / 900 Output Total 1450 / 1450 Balance 900 / 900 -550 / -550 Objective : Exam - General General Appearance: Cooperative, Mild Distress - Eye Eye Exam: PERRL - Respiratory Respiratory Exam: Clear to Auscultation - Bilaterally - GI/Abdominal GI/Abdominal Exam: Normal Bowel Sounds, Distended Additional GI/Abdominal Exam Details: Patient's tender to touch throughout her abdomen. There is some rebound. Assessment and Plan - Patient Problems (1) Perforated abdominal viscus Current Visit: Yes Status: Acute - Assessment / Plan Additional Assessment/Plan Details: At this point is liquid the patient has a perforated stomach. She will need surgery to repair the perforation. is coming in to the the surgery. Risks benefits of surgery have been explained to her she has signed consents. Patient is already receiving Invanz for antibiotic therapy.
--- NOTE | 2018-11-12 18:39 | DI ---
CT Abdomen WO Contrast 11/12/2018 5:34 PM History: [facility] [place]perforated [place] ^with oral Gastrografin contrast Comparison: CT abdomen/pelvis from earlier the same day. Technique: Imaging was performed with a multi-detector CT scanner. Approximately 100 mL of Gastrograf in enteric contrast was administered prior to scanning. Data acquisition was obtained from the dome o f the diaphragm through the pubic symphysis without intravenous contrast material immediately followi ng ingestion of the enteric contrast and again at 30 minutes. Multiplanar reformations were performed . Findings: There is an extraluminal collection of enteric contrast in the left upper quadrant along th e posterior aspect of the fundus of the stomach in the distribution of the previously noted heterogen eous fluid and gas collection. This is consistent with hollow viscus perforation. There is no extralu rachna contrast detected along the course of the small bowel. The amount of free intraperitoneal air h as not significantly changed from the most recent exam. Contrast is noted in the renal collecting system. A Paulson catheter is present in the decompressed uri nary bladder. Left greater than right lung base atelectasis is present; associated airspace disease is not excluded . The remainder of the exam is unchanged. Impression: 1. There is an extraluminal collection of enteric contrast in the left upper quadrant as outlined abo ve. These findings are consistent with hollow viscus perforation. These findings were discussed in person with Dr. López of General Surgery at 1815 on the day of the exam.
[2018-11-12] MEDS ORDERED: LIDOCAINE W/ SODIUM BICARB 0.5 ML SYR ONE (18:45)
[2018-11-12] MEDS ORDERED: MIDAZOLAM HCL 2 MG/2 ML VIAL ONE (18:52)
[2018-11-12] MEDS ORDERED: REMIFENTANIL 1 MG/1 ML IV ONE (18:52)
[2018-11-12] MEDS ORDERED: fentaNYL Inj 100 MCG/2 ML VIAL ONE ×3 (18:52→23:16)
[2018-11-12] MEDS ORDERED: REMIFENTANIL HCL 2 MG VIAL IV ONE (18:53)
[2018-11-12] MEDS ORDERED: KETAMINE HCL 100 MG/2 ML SYRINGE IV ONE (18:56)
[2018-11-12] MEDS ORDERED: PROPOFOL 10 MG/1 ML (200 MG/20 ML) VIAL IV ONE (19:02)
[2018-11-12] MEDS ORDERED: ROCURONIUM 10 MG/1 ML - 5 ML VIAL IVP ONE (19:02)
[2018-11-12] MEDS ORDERED: SCOPOLAMINE HYDROBROMIDE 1.5 MG - 1 EACH PATCH TRANSDERM ONE (19:40)
[2018-11-12] MEDS ORDERED: BUPivacaine Liposome/PF (Exparel) Inj 20ml vial INFIL ONE (22:07)
[2018-11-12] MEDS ORDERED: Sodium Chloride 0.9% vial 40 ML ONE (22:08)
[2018-11-12] MEDS ORDERED: GLYCOPYRROLATE 0.2 MG/1 ML VIAL ONE (22:19)
[2018-11-12] MEDS ORDERED: NEOSTIGMINE 1 MG/1 ML - 10 ML ONE (22:19)
[2018-11-12] MEDS ORDERED: ONDANSETRON 4 MG/2 ML VIAL ONE (22:50)
[2018-11-12] MEDS ORDERED: DEXTROSE 50%-WATER SYRINGE 50 ML SYRINGE IVP PRN (23:09)
[2018-11-12] MEDS ORDERED: Insulin Sliding Scale Protocol SUBCUT PRN (23:09)
[2018-11-12] MEDS ORDERED: Glucagon Inj Vial 1 MG/ML VIAL IM PRN (23:09)
[2018-11-12] MEDS ORDERED: DEXTROSE 31 GM GEL PO PRN (23:09)
[2018-11-12] MEDS ORDERED: fentaNYL Inj 100 MCG/2 ML VIAL IVP ONE (23:13)
[2018-11-12] MEDS: Insulin Glargine SoloStar Inj 100 UNIT/ML INSULN.PEN SUBCUT SCH (23:33)
[2018-11-12] MEDS: GABAPENTIN 300 MG CAPSULE PO SCH (23:33)
[2018-11-12] MEDS: Simvastatin Tab 40 MG TAB PO SCH (23:33)
[2018-11-12] MEDS ORDERED: FUROSEMIDE 10 MG/1 ML - 2 ML VIAL IVP ONE (23:42)
[2018-11-12] MEDS: Cefepime Inj 2 GM in Sodium Chloride 0.9% 100 ML IV SCH (23:54)
[2018-11-13] MEDS ORDERED: Insulin Lispro Flexpen 300 UNIT/3 ML INSULN.PEN SUBCUT SCH ×2 (00:45→07:00)
[2018-11-13] MEDS ORDERED: ENALAPRILAT DIHYDRATE 1.25 MG/1 ML VIAL IVP PRN (00:50)
[2018-11-13] MEDS: HEPARIN 5000 UNIT/1 ML SUBCUT SCH ×3 (02:17→19:09)
[2018-11-13 04:47] LABS: BASOPHILS # (AUTO) 0.01 10*3/UL; BASOPHILS % (AUTO) 0 % (0-1); EOSINOPHILS # (AUTO) 0.02 10*3/UL; EOSINOPHILS % (AUTO) 0.1 % (0-8); Hematocrit [HCT] 45.7 % (37.0-47.0); Hemoglobin [HGB] 14.8 g/dL (12.0-16.0); LYMPHOCYTES # (AUTO) 1.93 10*3/uL; MEAN CORPUSCULAR HEMOGLOBIN 31.4 PG (27-31); MEAN CORPUSCULAR HGB CONC 32.4 g/dL (33-37); MEAN CORPUSCULAR VOLUME 96.8 FL (81-99); MEAN PLATELET VOLUME 11.6 FL (7.4-12.2); MONOCYTES # (AUTO) 1.91 10*3/UL (0.3-0.8); MONOCYTES % (AUTO) 9.2 % (5-15); NEUTROPHILS # (AUTO) 16.87 10*3/UL; NEUTROPHILS % (AUTO) 81.1 % (50-80); RED BLOOD COUNT 4.72 10^6/uL (4.20-5.40)
[2018-11-13] MEDS: ONDANSETRON 4 MG/2 ML VIAL IVP PRN ×2 (04:56→14:27)
[2018-11-13] MEDS: MORPHINE SULFATE 2 MG/1 ML IVP PRN ×7 (04:56→22:55)
[2018-11-13 05:01] LABS: BLOOD UREA NITROGEN 12 mg/dL (7-22); BUN/CREATININE RATIO 17.14 (6-20); SERUM ALBUMIN 3.6 g/dL (3.5-4.8)
[2018-11-13 05:21] LABS: PLATELET MORPHOLOGY COMMENT NORMAL MORPHOLOGY (NORM); RBC MORPHOLOGY COMMENT NORMAL MORPHOLOGY (NORM); WBC MORPHOLOGY COMMENT NORMAL MORPHOLOGY (NORM)
[2018-11-13] MEDS: LORazepam 2 MG/1 ML VIAL IVP PRN ×4 (06:22→21:35)
[2018-11-13] MEDS: LEVOTHYROXINE 100 MCG TABLET PO SCH (07:43)
[2018-11-13] MEDS: Insulin Lispro Flexpen 300 UNIT/3 ML INSULN.PEN SUBCUT SCH ×4 (08:33→20:24)
[2018-11-13] MEDS: Cefepime Inj 2 GM in Sodium Chloride 0.9% 100 ML IV SCH ×3 (08:34→22:56)
[2018-11-13] MEDS ORDERED: Sodium Chloride 0.9% 500 ML PRIMARY IV ONE ×2 (08:40→08:55)
--- NOTE | 2018-11-13 08:54 | PDOC(PROG) ---
Subjective Post Op Day: postop day 1 Pain Management: Peripheral BLEACH RANGE OPERATOR Paulson Catheter: Yes Flatus: No Diet: NPO Date of Service: 11/13/18 Time of Service: 08:53 Interval History: Patient states that her pain is different. She would like her NG tube out. Objective : Data - Labs CBC and BMP: 11/13/18 04:08 11/13/18 04:08 - Vital Signs Vital Signs and I&O: Vital Signs - Last Taken Temperature 97.2 F 11/13/18 04:00 Pulse Rate 113 H 11/13/18 08:00 Respiratory Rate 14 11/13/18 08:00 Blood Pressure 138/86 11/13/18 08:00 Pulse Ox 92 11/13/18 08:00 Intake and Output (24hr x 4 totals) 11/11/18 11/12/18 11/13/18 11/14/18 05:59 05:59 05:59 05:59 Intake Total 900 / 900 3010 / 3010 Output Total 3825 / 3825 Balance 900 / 900 -815 / -815 Objective : Exam - Respiratory Respiratory Exam: Clear to Auscultation - Bilaterally - Cardiovascular Cardiovascular Exam: Tachycardia - GI/Abdominal Additional GI/Abdominal Exam Details: Abdomen is tender but less tender than it was before making incisional pain now. Dressings are dry. No bowel sounds. Assessment and Plan - Patient Problems (1) Perforated abdominal viscus Current Visit: Yes Status: Acute - Assessment / Plan Additional Assessment/Plan Details: Patient overall I think is doing well. She is tachycardic may be some dehydration. We'll give her a fluid bolus.
[2018-11-13] MEDS: LIRAGLUTIDE 1.2 MG SUBCUT SCH (09:16)
[2018-11-13] MEDS: Metoprolol TARTRATE Tab 50 MG TAB PO SCH (09:16)
[2018-11-13] MEDS: CHLORTHALIDONE 50 MG TABLET PO SCH (09:16)
[2018-11-13] MEDS: QUINAPRIL 20 MG TABLET PO SCH ×2 (09:16→20:34)
[2018-11-13] MEDS: VILAZODONE HCL 40 MG PO SCH (09:16)
[2018-11-13] MEDS: PANTOPRAZOLE IV 40 MG VIAL IVP SCH (09:21)
[2018-11-13] MEDS: PHENOL/SODIUM PHENOLATE 177 ML SPRAY PO PRN ×2 (09:38→14:31)
--- NOTE | 2018-11-13 10:20 | PDOC(PROG) ---
Interval History: Patient is doing well postop for perforated viscus status post repair. She has no complaints this morning she had just received Ativan and is a little sleepy Objective : Data - Labs CBC and BMP: 11/13/18 04:08 11/13/18 04:08 Objective : Exam - General General Appearance: Cooperative - Respiratory Respiratory Exam: Clear to Auscultation - Bilaterally, Breathing Non Labored, Normal To Percussion, Normal to Percussion and Palpation - Cardiovascular Cardiovascular Exam: RRR, No Murmur, No Clicks, No Gallops, No Rubs, PMI Non- Displaced - GI/Abdominal Additional GI/Abdominal Exam Details: Mild tenderness much less tender than yesterday Assessment and Plan - Patient Problems (1) Chest pain Current Visit: Yes Status: Acute Comment: Negative troponin. This most likely was from her perforated bowel and radiating pain and not her heart Code(s): R07.9 - Chest pain, unspecified (2) Perforated abdominal viscus Current Visit: Yes Status: Acute Comment: After repeated CAT scans yesterday this was found contacted surgeons are brought her to the ER last night was repaired and is now postop. Tachycardic bolus fluid was given will continue monitoring labs reviewed electrolytes are within normal range white count increased most likely from a intraoperative manipulation at this point continue cefepime broad-spectrum antibiotics as requested by Dr. HEAD
[2018-11-13] MEDS: Sodium Chloride 0.9% 1,000 ML PRIMARY IV SCH ×2 (14:31→21:30)
[2018-11-13] MEDS ORDERED: METOPROLOL TARTRATE 5 MG/5 ML VIAL IVP PRN (20:00)
[2018-11-13] MEDS: Insulin Glargine SoloStar Inj 100 UNIT/ML INSULN.PEN SUBCUT SCH (20:34)
[2018-11-13] MEDS: GABAPENTIN 300 MG CAPSULE PO SCH (20:34)
[2018-11-13] MEDS: Simvastatin Tab 40 MG TAB PO SCH (20:35)
[2018-11-14] MEDS: HEPARIN 5000 UNIT/1 ML SUBCUT SCH ×3 (02:13→17:50)
[2018-11-14] MEDS: MORPHINE SULFATE 2 MG/1 ML IVP PRN ×6 (02:55→20:17)
[2018-11-14] MEDS: Sodium Chloride 0.9% 1,000 ML PRIMARY IV SCH ×3 (02:56→17:49)
[2018-11-14] MEDS: LEVOTHYROXINE 100 MCG TABLET PO SCH (04:55)
[2018-11-14 05:11] LABS: BASOPHILS # (AUTO) 0.05 10*3/UL; BASOPHILS % (AUTO) 0.3 % (0-1); EOSINOPHILS # (AUTO) 1.22 10*3/UL; EOSINOPHILS % (AUTO) 7.5 % (0-8); Hemoglobin [HGB] 12.9 g/dL (12.0-16.0); LYMPHOCYTES # (AUTO) 2.59 10*3/uL; MEAN CORPUSCULAR HEMOGLOBIN 31.5 PG (27-31); MEAN CORPUSCULAR HGB CONC 31.5 g/dL (33-37); MEAN CORPUSCULAR VOLUME 100.2 FL (81-99); MEAN PLATELET VOLUME 11.2 FL (7.4-12.2); MONOCYTES # (AUTO) 1.61 10*3/UL (0.3-0.8); MONOCYTES % (AUTO) 9.9 % (5-15); NEUTROPHILS # (AUTO) 10.78 10*3/UL; NEUTROPHILS % (AUTO) 66.2 % (50-80); RED BLOOD COUNT 4.09 10^6/uL (4.20-5.40)
[2018-11-14 05:35] LABS: PLATELET MORPHOLOGY COMMENT NORMAL MORPHOLOGY (NORM); RBC MORPHOLOGY COMMENT NORMAL MORPHOLOGY (NORM); WBC MORPHOLOGY COMMENT NORMAL MORPHOLOGY (NORM)
[2018-11-14] MEDS: Insulin Lispro Flexpen 300 UNIT/3 ML INSULN.PEN SUBCUT SCH (07:00)
[2018-11-14] MEDS: Cefepime Inj 2 GM in Sodium Chloride 0.9% 100 ML IV SCH ×2 (07:01→17:14)
--- NOTE | 2018-11-14 07:14 | PDOC(PROG) ---
Interval History: Uneventful night pain is much improved she is hoping that tomorrow maybe her NG tube can come out Objective : Data - Labs CBC and BMP: 11/14/18 04:23 11/13/18 04:08 Objective : Exam - General General Appearance: Cooperative - Respiratory Respiratory Exam: Clear to Auscultation - Bilaterally, Breathing Non Labored, Normal To Percussion, Normal to Percussion and Palpation - Cardiovascular Cardiovascular Exam: RRR, No Murmur, No Clicks, No Gallops, No Rubs, PMI Non- Displaced - GI/Abdominal GI/Abdominal Exam: Normal Bowel Sounds, Non Tender, Non Distended, Soft, No Masses, No Hepatomegaly, No Splenomegaly, No Organomegaly Assessment and Plan - Patient Problems (1) Perforated abdominal viscus Current Visit: Yes Status: Acute Comment: Repaired by Dr. pranay Espino. Doing well postop white count improved continue cefepime continue NG tube at intermittent suction defer to general surgery for one patient can eat and have the tube out Dr. pranay Espino okayed her come out of the ICU will be kept nothing by mouth (2) Chest pain Current Visit: Yes Status: Acute Comment: Resolved secondary to viscus perforation not cardiac in origin and troponins Code(s): R07.9 - Chest pain, unspecified (3) Hypertension Current Visit: Yes Status: Acute Comment: Treating with IV beta asael she has not had her usual beta asael for a few days that is why she is tachycardic. Vital signs improved urine output Code(s): I10 - Essential (primary) hypertension
--- NOTE | 2018-11-14 08:27 | PDOC(PROG) ---
Subjective Post Op Day: 2 Pain Management: Peripheral ASSOCIATE FIELD SERVICE ENGINEER Paulosn Catheter: Yes Flatus: Yes Diet: NPO Date of Service: 11/14/18 Time of Service: 08:26 Interval History: Patient is very hungry. And is begging for food or ice chips. Objective : Data - Labs CBC and BMP: 11/14/18 04:23 11/13/18 04:08 - Vital Signs Vital Signs and I&O: Vital Signs - Last Taken Temperature 96.8 F 11/14/18 04:00 Pulse Rate 92 11/14/18 06:00 Respiratory Rate 16 11/14/18 06:00 Blood Pressure 140/79 11/14/18 06:00 Pulse Ox 91 11/14/18 06:00 Intake and Output (24hr x 4 totals) 11/12/18 11/13/18 11/14/18 11/15/18 05:59 05:59 05:59 05:59 Intake Total 900 / 900 3010 / 3010 3076 / 3076 Output Total 3825 / 3825 775 / 775 Balance 900 / 900 -815 / -815 2301 / 2301 Objective : Exam - General General Appearance: No Acute Distress, Cooperative - Eye Eye Exam: PERRL - Neck Neck Exam: Full ROM - Respiratory Respiratory Exam: Clear to Auscultation - Bilaterally, Breathing Non Labored - Cardiovascular Cardiovascular Exam: RRR - GI/Abdominal GI/Abdominal Exam: Normal Bowel Sounds, Non Tender, Non Distended, Soft Assessment and Plan - Patient Problems (1) Perforated abdominal viscus Current Visit: Yes Status: Acute - Assessment / Plan Additional Assessment/Plan Details: Patient is actually improving nicely. Continue antibiotics her white count is normal. Will leave NG tube in more morning. Will get a Gastrografin swallow in a.m. to see if she has a leak. No leak can remove the NG tube and start feeding the patient..
[2018-11-14] MEDS: QUINAPRIL 20 MG TABLET PO SCH ×2 (10:28→21:14)
[2018-11-14] MEDS: CHLORTHALIDONE 50 MG TABLET PO SCH (10:28)
[2018-11-14] MEDS: VILAZODONE HCL 40 MG PO SCH (10:29)
[2018-11-14] MEDS: Metoprolol TARTRATE Tab 50 MG TAB PO SCH (10:29)
[2018-11-14] MEDS: PANTOPRAZOLE IV 40 MG VIAL IVP SCH (10:33)
[2018-11-14] MEDS: LIRAGLUTIDE 1.2 MG SUBCUT SCH (10:39)
[2018-11-14] MEDS ORDERED: ENALAPRILAT DIHYDRATE 1.25 MG/1 ML VIAL IVP PRN (10:42)
[2018-11-14] MEDS ORDERED: CALCIUM CARBONATE 500 MG (TUMS) CHEWABLE TABLET PO PRN (10:42)
[2018-11-14] MEDS ORDERED: DEXTROSE 31 GM GEL PO PRN (10:42)
[2018-11-14] MEDS ORDERED: METOPROLOL TARTRATE 5 MG/5 ML VIAL IVP PRN (10:42)
[2018-11-14] MEDS ORDERED: ONDANSETRON 4 MG/2 ML VIAL IVP PRN (10:42)
[2018-11-14] MEDS ORDERED: Acetaminophen 1000mg Inj 1,000 MG/100 ML VIAL IV PRN (10:42)
[2018-11-14] MEDS ORDERED: Methocarbamol Tab 500 MG TAB PO PRN (10:42)
[2018-11-14] MEDS ORDERED: DEXTROSE 50%-WATER SYRINGE 50 ML SYRINGE IVP PRN (10:42)
[2018-11-14] MEDS ORDERED: LIDOCAINE HCL 2 % 10 ML JELLY URO-JECT TOPICAL PRN (10:42)
[2018-11-14] MEDS ORDERED: PHENOL/SODIUM PHENOLATE 177 ML SPRAY PO PRN (10:42)
[2018-11-14] MEDS ORDERED: LIDOCAINE W/ SODIUM BICARB 0.5 ML SYR SUBD PRN (10:42)
[2018-11-14] MEDS ORDERED: NITROGLYCERIN 0.4 MG SL TAB (BOTTLE OF 3) SL PRN (10:42)
[2018-11-14] MEDS ORDERED: Insulin Sliding Scale Protocol SUBCUT PRN (10:42)
[2018-11-14] MEDS ORDERED: ZOLPIDEM 10 MG TABLET PO PRN (10:42)
[2018-11-14] MEDS: LORazepam 2 MG/1 ML VIAL IVP PRN ×2 (11:56→21:47)
--- NOTE | 2018-11-14 16:06 | PTI REPORT ---
Thank you for the referral of Shyla Charles. She was seen on 11/14/18 for an inpatient evaluation secondary to weakness. SUBJECTIVE: The patient is a 53-year-old female. The patient reports that she lives at home alone and was previously independent. The patient works at the [employer] [facility] [place]. The patient was not previously on oxygen. PAST MEDICAL HISTORY: Past medical history can be found in the patient's medical record. OBJECTIVE FINDINGS: General observations: Nursing okayed treatment prior to PT and disconnected NG tube. The patient was on 10 liters of oxygen via mask. Bed mobility: The patient requires stand by assist for supine to sit transfer to edge of bed. Transfers: The patient requires contact guard assist x1 for sit to stand transfer with walker. Ambulation: The patient requires contact guard assist x1 for ambulation with 10 liters of oxygen. ASSESSMENT: The patient is a 53-year-old female that presents with generalized weakness. The patient would benefit from skilled therapy in order to improve functional mobility and return to prior level of function. Problem List: Decreased strength Decreased functional mobility Decreased endurance Short-Term Goals: To be met by discharge from inpatient: Patient will be independent with all transfers with least restrictive assistive device. Patient will be able to ambulate 150 feet with walker. Patient will be able to tolerate 15 minutes of activity. Long-Term Goals: To be met following discharge from inpatient: Patient will return home per prior level of function. TREATMENT PLAN: Patient will be seen B.I.D during the week and one time per day over the weekend as an inpatient for therapeutic exercise, functional mobility, neuromuscular reeducation, and gait training. INITIAL TREATMENT: Treatment today consisted of the initial evaluation followed by the patient ambulating x300 feet with contact guard assist x1 on 10 liters of oxygen and front wheeled walker. Following treatment the patient was left in bed with proper alarms placed and nursing notified that NG tube needed to be reconnected. LARA
--- NOTE | 2018-11-14 17:08 | PT.PROG ---
Progress Note Progress Note: S. Patient stated that she is very sore at her incision site. O. Patient ambulated 150 feet around the nurses station and back to her room where she was left in the restroom with OT. A. Patient tolerated ambulation well, she was able to ambulate with no rest breaks and no complaints of pain or problems. Patient would continue to benefit from skilled therapy to increase strength and endurance at this time. P. Continue POC.
[2018-11-14] MEDS ORDERED: GABAPENTIN 300 MG CAPSULE PO SCH (21:00)
[2018-11-14] MEDS: Simvastatin Tab 40 MG TAB PO SCH (21:14)
[2018-11-15] MEDS: Cefepime Inj 2 GM in Sodium Chloride 0.9% 100 ML IV SCH ×4 (00:52→23:44)
[2018-11-15] MEDS: MORPHINE SULFATE 2 MG/1 ML IVP PRN ×4 (00:52→11:31)
[2018-11-15] MEDS: HEPARIN 5000 UNIT/1 ML SUBCUT SCH ×3 (01:00→17:56)
[2018-11-15 05:04] LABS: BASOPHILS # (AUTO) 0.07 10*3/UL; BASOPHILS % (AUTO) 0.5 % (0-1); EOSINOPHILS # (AUTO) 1.81 10*3/UL; EOSINOPHILS % (AUTO) 11.8 % (0-8); Hematocrit [HCT] 40.5 % (37.0-47.0); Hemoglobin [HGB] 12.8 g/dL (12.0-16.0); LYMPHOCYTES # (AUTO) 3.03 10*3/uL; MEAN CORPUSCULAR HEMOGLOBIN 31.8 PG (27-31); MEAN CORPUSCULAR HGB CONC 31.6 g/dL (33-37); MEAN CORPUSCULAR VOLUME 100.5 FL (81-99); MEAN PLATELET VOLUME 11.6 FL (7.4-12.2); MONOCYTES # (AUTO) 1.35 10*3/UL (0.3-0.8); MONOCYTES % (AUTO) 8.8 % (5-15); NEUTROPHILS # (AUTO) 9.01 10*3/UL; NEUTROPHILS % (AUTO) 58.9 % (50-80); RED BLOOD COUNT 4.03 10^6/uL (4.20-5.40)
[2018-11-15 05:24] LABS: PLATELET MORPHOLOGY COMMENT NORMAL MORPHOLOGY (NORM); RBC MORPHOLOGY COMMENT NORMAL MORPHOLOGY (NORM); WBC MORPHOLOGY COMMENT NORMAL MORPHOLOGY (NORM)
[2018-11-15 05:36] LABS: BLOOD UREA NITROGEN 13 mg/dL (7-22); BUN/CREATININE RATIO 21.66 (6-20)
[2018-11-15] MEDS: Sodium Chloride 0.9% 1,000 ML PRIMARY IV SCH (07:38)
[2018-11-15] MEDS ORDERED: CHLORTHALIDONE 50 MG TABLET PO SCH (09:00)
[2018-11-15] MEDS: PANTOPRAZOLE IV 40 MG VIAL IVP SCH (09:10)
--- NOTE | 2018-11-15 11:06 | DI ---
XR ESOPHAGRAM 11/15/2018 9:23 AM History: [facility] [place] [facility] [place]Perforated Stomach ^Gastrograffin esophagram, extended to visualize st Comparison: CT abdomen 11/12/2018. Procedure: The patient had no reported risk of aspiration. Given the history of gastric perforation a nd surgical repair, a single contrast evaluation of the stomach was performed for evaluation of extra luminal contrast following the administration of Gastrografin by NG tube. The patient was placed supi ne in the Trendelenburg position and moved to the left lateral decubitus position during the exam. Th e patient tolerated the procedure well and left without incident. Findings: An NG tube is in place with the tip projecting over the distribution of the stomach. Surgic al material projects over the left upper quadrant. No extraluminal contrast extravasation was noted f ollowing the administration of oral Gastrografin. Impression: No fluoroscopic evidence of gastric perforation.
--- NOTE | 2018-11-15 11:24 | OTI REPORT ---
Thank you for the referral of Shyla Charles. She was seen on 11/14/18 for an occupational therapy inpatient evaluation secondary to weakness. SUBJECTIVE: The patient is a 53-year-old female. The patient reports that she is feeling very tired this afternoon. She does complain of pain in her ear, her upper abdomen, and her throat secondary to her NG tube placement. She does report that she is feeling somewhat better following her surgery which occurred on Monday night; however, she continues to feel weak and tired. She is hoping to have her NG tube removed tomorrow. The patient reports at prior level of function she was independent in all ADLs and iADLs. 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 She is hoping to return home to prior level of function and to get back to work as soon as possible. The patient was independent with driving within the community at prior level of function. She had no difficulty with ambulation; she ambulated without the use of an assistive device. The patient was admitted to the hospital on Monday. PAST MEDICAL HISTORY: Past medical history can be found in the patient's medical record. OBJECTIVE FINDINGS: General observations: The patient is currently on 10 liters of oxygen with a nasal mask secondary to NG tube placement. Bed mobility: The patient demonstrated the ability to move from sitting propped up in bed to sitting edge of bed independently once her IV and NG tube were disconnected by nursing. She tolerated sitting edge of bed without difficulty; however, she did have a slight increase in pain over her incision area on her left abdomen. This pain did resolve itself. The patient was able to transfer from sitting edge of bed to supine in bed independently. Transfers: The patient demonstrated the ability to perform a sit to stand transfer with contact guard assist. The patient demonstrated the ability to complete a toilet transfer with contact guard assist; however, she was unable to perform toilet hygiene at this time. The patient required total assist for toilet hygiene secondary to pain while reaching around. Ambulation: The patient ambulated x150 feet with contact guard assist at a slow pace. The patient did report feeling slightly short of breath upon returning from her walk. ASSESSMENT: Rehab potential is good secondary to the patient's age and level of motivation. Problem List: Decreased ability to complete lower extremity dressing Decreased ability to complete upper extremity dressing Decreased activity tolerance Short-Term Goals: To be met by discharge from inpatient: Patient will demonstrate the ability to complete lower extremity dressing tasks with modified independence with use of adaptive equipment as needed. Patient will demonstrate the ability to complete upper extremity dressing tasks independently to include set up. Patient will demonstrate increased activity tolerance in order to tolerate entire ADL routine with no losses of balance and no reports of fatigue and taking no rest breaks. Patient will demonstrate the ability to complete entire toileting task to include pants management, toilet hygiene, and transfer independently. Long-Term Goals: To be met following discharge from inpatient: Patient will return home to prior level of function and will return to work eventually. TREATMENT PLAN: Patient will be seen B.I.D during the week and one time per day over the weekend as an inpatient to address the above goals and objectives. INITIAL TREATMENT: Treatment today consisted of the initial evaluation only. Following treatment the patient was left in bed with call light in place and oxygen on. Nursing was notified of the patient's ins and outs and to reconnect her IV and her NG tube. LARA
[2018-11-15] MEDS: QUINAPRIL 20 MG TABLET PO SCH ×2 (11:30→20:48)
[2018-11-15] MEDS: Metoprolol TARTRATE Tab 50 MG TAB PO SCH (11:30)
[2018-11-15] MEDS: CHLORTHALIDONE 25 MG PO SCH (12:51)
--- NOTE | 2018-11-15 13:52 | PDOC(PROG) ---
Subjective Post Op Day: 3 Pain Management: Peripheral [employer] Paulson Catheter: No Flatus: Yes Diet: Clear Liquids Date of Service: 11/15/18 Time of Service: 13:51 Interval History: Patient states she's feeling better. Objective : Data - Labs CBC and BMP: 11/15/18 04:09 11/15/18 04:09 - Vital Signs Vital Signs and I&O: Vital Signs - Last Taken Temperature 97 F 11/15/18 13:00 Pulse Rate 81 11/15/18 13:00 Respiratory Rate 16 11/15/18 13:00 Blood Pressure 172/99 11/15/18 13:00 Pulse Ox 96 11/15/18 13:00 Intake and Output (24hr x 4 totals) 11/13/18 11/14/18 11/15/18 11/16/18 05:59 05:59 05:59 05:59 Intake Total 3010 / 3010 3076 / 3076 2676 / 2676 360 / 360 Output Total 3825 / 3825 775 / 775 2049 / 2049 Balance -815 / -815 2301 / 2301 626 / 626 360 / 360 Objective : Exam - General General Appearance: No Acute Distress, Cooperative - Respiratory Respiratory Exam: Clear to Auscultation - Bilaterally - GI/Abdominal GI/Abdominal Exam: Normal Bowel Sounds, Non Tender, Non Distended, Soft Assessment and Plan - Patient Problems (1) Perforated abdominal viscus Current Visit: Yes Status: Acute - Assessment / Plan Additional Assessment/Plan Details: Patient is gastric swallow so no evidence of leak. Patient of the NG tube removed and circular liquid diets.*Oral pain medicine. Have the hospitalist start by mouth medicines as he feels needed.
--- NOTE | 2018-11-15 14:40 | PDOC(PROG) ---
Date of Service: 11/15/18 Time of Service: 15:00 Interval History: Subjective Patient feels better she said. They just took her NG out. She is denying abdominal pain. Denying shortness of breath. Objective : Data - Labs CBC and BMP: 11/15/18 04:09 11/15/18 04:09 Objective : Exam - General General Appearance: No Acute Distress, Cooperative, Obese - Head Head Exam: Normal Inspection - Eye Eye Exam: Normal Appearance - ENT ENT Exam: Normal Exam - Neck Neck Exam: Normal Inspection - Respiratory Additional Respiratory Exam Details: Decreased air entry with decreased rest on the left lower base. - Cardiovascular Cardiovascular Exam: RRR - GI/Abdominal GI/Abdominal Exam: Normal Bowel Sounds, Non Tender, Non Distended, Soft, No Organomegaly Additional GI/Abdominal Exam Details: Dressing applied to the wound. - Rectal Rectal Exam: Deferred - External Exam: Deferred - Extremities Extremities Exam: Normal Inspection - Back Back Exam: Normal Inspection - Neurological Neurological Exam: Alert, Oriented x 3, CN II-XII Intact, No Facial Droop, Speech Intact / Clear - Psychiatric Psychiatric Exam: Normal Affect - Integumentary Integumentary Exam: Normal Color Assessment and Plan - Patient Problems (1) Perforated abdominal viscus Current Visit: Yes Status: Acute Comment: Status post surgery. She is on cefepime I added Flagyl for anaerobic coverage. We'll stop her IV fluids will start clear liquid. She'll be on oral pain medication as needed. (2) Hypertension Current Visit: Yes Status: Acute Comment: Continue metoprolol, quinapril and chlorthalidone. Code(s): I10 - Essential (primary) hypertension (3) Hypothyroid Current Visit: No Status: Chronic Comment: We'll restart her on the levothyroxin Code(s): E03.9 - Hypothyroidism, unspecified Qualifiers: Hypothyroidism type: unspecified Qualified Code(s): E03.9 - Hypothyroidism, unspecified (4) Diabetes mellitus type II, controlled Current Visit: No Status: Chronic Comment: I think will hold off on diabetes medication as she just started clear liquid and will see what's her blood sugar numbers. Code(s): E11.9 - Type 2 diabetes mellitus without complications (5) Hypoxia Current Visit: Yes Status: Acute Comment: She has underlying sleep apnea in addition she had some consolidation on the left lower lobe may be atelectasis. She is covered with antibiotics. S he was on 10 L and they just cut it back to 6 will see what's her oxygen need tomorrow. Code(s): R09.02 - Hypoxemia
[2018-11-15] MEDS ORDERED: SODIUM CHLORIDE 44 ML SPRAY ENOS PRN (16:28)
--- NOTE | 2018-11-15 16:54 | PT.PROG ---
Progress Note Progress Note: Patient was on hold this morning due to having tests. Patient will be seen this afternoon for further therapy.
--- NOTE | 2018-11-15 17:17 | OT.PROG ---
Progress Note Progress Note: Occupational Therapy: S: pt stated that she was feeling well today and agreed to therapy. O: tx consisted of bed mobility from supine to EOB independently, sitting at EOB and completing ADL tasks of dressing. pt completed UE and LE dressing independently with no losses of balance or safety. pt then ambulated x6' in dependently with SBA for safety to bathroom and completed all toileting tasks and hygiene independently. pt completed ADL task of washing hands with no,losses of balance and transferred into recliner independently. A: pts O2 stats after therapy were 79% but came up to 93% after 1 min of using oxygen. pt tolerated session well and is progressing on all therapy goals. P: continue POC
--- NOTE | 2018-11-15 17:27 | PT.PROG ---
Progress Note Progress Note: S. patient stated that she is feeling much better this afternoon, she feels that she is ready to go home. O. Patient ambulated 300 feet around the nurses station and returned to her room where she was left in her chair with alarm and call light. A. Patient tolerated ambulation well, she was able to ambulate independently, she has met all goals at this time. P. Continue POC.
[2018-11-15] MEDS: oxyCODONE/APAP 10/325 Tab 1 EACH TAB PO PRN ×2 (17:56→23:41)
[2018-11-15] MEDS: Simvastatin Tab 40 MG TAB PO SCH (20:36)
[2018-11-15] MEDS: metroNIDAZOLE 500mg (Premix) 500 MG/100 ML BAG IV SCH (21:28)
[2018-11-15] MEDS: LORazepam 2 MG/1 ML VIAL IVP PRN (23:43)
[2018-11-16] MEDS: HEPARIN 5000 UNIT/1 ML SUBCUT SCH ×2 (03:27→09:51)
[2018-11-16] MEDS: metroNIDAZOLE 500mg (Premix) 500 MG/100 ML BAG IV SCH (03:27)
[2018-11-16] MEDS ORDERED: LEVOTHYROXINE 100 MCG TABLET PO SCH (05:30)
[2018-11-16 05:33] LABS: BASOPHILS % (AUTO) 0.7 % (0-1); EOSINOPHILS # (AUTO) 1.68 10*3/UL; EOSINOPHILS % (AUTO) 11.8 % (0-8); Hematocrit [HCT] 37.2 % (37.0-47.0); LYMPHOCYTES # (AUTO) 4.41 10*3/uL; MEAN CORPUSCULAR HEMOGLOBIN 32.1 PG (27-31); MEAN CORPUSCULAR HGB CONC 32.3 g/dL (33-37); MEAN CORPUSCULAR VOLUME 99.5 FL (81-99); MONOCYTES # (AUTO) 1.33 10*3/UL (0.3-0.8); MONOCYTES % (AUTO) 9.4 % (5-15); NEUTROPHILS # (AUTO) 6.66 10*3/UL; NEUTROPHILS % (AUTO) 46.8 % (50-80); RED BLOOD COUNT 3.74 10^6/uL (4.20-5.40)
[2018-11-16 05:38] LABS: PLATELET MORPHOLOGY COMMENT NORMAL MORPHOLOGY (NORM); RBC MORPHOLOGY COMMENT NORMAL MORPHOLOGY (NORM); WBC MORPHOLOGY COMMENT NORMAL MORPHOLOGY (NORM)
[2018-11-16 05:49] LABS: BLOOD UREA NITROGEN 11 mg/dL (7-22); BUN/CREATININE RATIO 18.33 (6-20)
[2018-11-16] MEDS: PANTOPRAZOLE IV 40 MG VIAL IVP SCH (08:48)
[2018-11-16] MEDS: QUINAPRIL 20 MG TABLET PO SCH (08:48)
[2018-11-16] MEDS: CHLORTHALIDONE 25 MG PO SCH (08:48)
[2018-11-16] MEDS: Metoprolol TARTRATE Tab 50 MG TAB PO SCH (08:48)
[2018-11-16] MEDS: Cefepime Inj 2 GM in Sodium Chloride 0.9% 100 ML IV SCH (08:49)
--- NOTE | 2018-11-16 10:56 | PDOC(PROG) ---
Date of Service: 11/16/18 Time of Service: 10:54 Interval History: Patient states is feeling fine and is ready to go home. She denies any fever or chills. She denies abdominal pain. She is tolerating oatmeal and coffee. Objective : Data - Labs CBC and BMP: 11/16/18 05:10 11/16/18 05:10 - Vital Signs Vital Signs and I&O: Vital Signs - Last Taken Temperature 97 F 11/16/18 07:17 Pulse Rate 84 11/16/18 07:17 Respiratory Rate 18 11/16/18 07:19 Blood Pressure 127/77 11/16/18 07:17 Pulse Ox 89 11/16/18 07:17 Intake and Output (24hr x 4 totals) 11/14/18 11/15/18 11/16/18 11/17/18 05:59 05:59 05:59 05:59 Intake Total 3076 / 3076 2676 / 2676 560 / 560 100 / 100 Output Total 775 / 775 2050 / 2050 400 / 400 400 / 400 Balance 2301 / 2301 626 / 626 160 / 160 -300 / -300 Objective : Exam - General General Appearance: No Acute Distress, Cooperative - GI/Abdominal GI/Abdominal Exam: Non Tender, Non Distended, Soft Assessment and Plan - Patient Problems (1) Perforated abdominal viscus Current Visit: Yes Status: Acute - Assessment / Plan Additional Assessment/Plan Details: Overall I think the patient is doing very well. She is tolerating diet. No abdominal pain. I do think she can go home. Questions are elevated white count secondary to leukemoid type reaction versus an actual infection. I am doubtful she has an intra-abdominal infection she'll follow-up with me in 1 week's time.
[2018-11-16 11:14] VITALS: O2SAT 92
[2018-11-16 11:15] VITALS: BP 134/79; RESP 20; TEMP 97.1
[2018-11-16] MEDS: oxyCODONE/APAP 10/325 Tab 1 EACH TAB PO PRN (11:30)
--- NOTE | 2018-11-16 12:03 | PT.PROG ---
Progress Note Progress Note: S. Patient stated that she is feeling much better and feels that she is ready to go home. O. Patient ambulated 450 feet around the nurses station, Nursing ambulated with us to decrease her O2. Patient was left in her chair with call light. A. Patient tolerated ambulation well, she was able to tolerate decrease in O2 with slight decrease in Sats, Patient required short standing rest break to recover sats. Patient has met all Therapy goals at this time. P. Continue POC until Discharge.
--- NOTE | 2018-11-16 13:41 | DCSUMMARY ---
Hospitalization Summary Admit Date: 11/11/2018 Discharge Date: 11/16/18 Hospital Course: Discharge diagnoses 1. Posterior fundus perforation status post surgery 2. Recent surgery for removal LAP-BAND 3. Hypoxia probably secondary to a combination of atelectasis and sleep apnea 4. History of diabetes 5. Obesity 6. Hypertension 7. Hypothyroidism 8. History of diverticular disease 9. History of hypercholesterolemia 10. History of hysterectomy Hospital course This a 53 years old female with medical history significant for history of diabetes, hypertension she had LAP-BAND removal surgery few days before admission who presented to the hospital with history of pain in the left side of the chest in addition to the back left shoulder and shortness of breath with taking deep breath. She was admitted to the hospital by Dr. Marquez please see his note. She had troponin checked and they were negative, EKG no changes. She had a CT which showed the presence of for air in the abdomen. This was initially attributed to being secondary to surgery however the amount of gas increased so she was taken to surgery and was found that she had posterior fundus perforation and this was repaired. She was treated with antibiotics. Initially she did require high oxygen but gradually that came down. I saw her on the she was making improvement she felt better. She had a Gastrografin test done which showed no evidence of for leaks so the NG tube was removed and she was started on clear liquid and later that's night her diet was advanced. Her oxygen need also decreased from 10 L to down to 3 L on the day of discharge. On The day of discharge was feeling better did walk with physical therapy she did well with that we discharge her home and did write for antibiotics for an additional few days. She will be discharged on portable oxygen she has a concentrator at home. She well follow-up with her primary and Dr. López. Laboratory Results 11/16/18 11/16/18 05:10 05:10 WBC 14.22 H RBC 3.74 L Hgb 12.0 Hct 37.2 MCV 99.5 H MCH 32.1 H MCHC 32.3 L RDW Std Deviation 51.4 H RDW Coeff of Sd 14.4 Plt Count 380 H MPV 11.0 Immature Gran % (Auto) 0.3 Neut % (Auto) 46.8 L Lymph % (Auto) 31.0 Wells % (Auto) 9.4 Eos % (Auto) 11.8 H Baso % (Auto) 0.7 Immature Gran # (Auto) 0.04 Neut # (Auto) 6.66 Lymph # (Auto) 4.41 Wells # (Auto) 1.33 H Eos # (Auto) 1.68 Baso # (Auto) 0.10 WBC Morphology Comment Normal morphology Plt Morphology Comment Normal morphology RBC Morph Comment Normal morphology Sodium 138 Potassium 3.5 L Chloride 100 Carbon Dioxide 35 H Anion Gap 3 L BUN 11 Creatinine 0.6 Estimated GFR > 60 BUN/Creatinine Ratio 18.33 Glucose 108 Calculated Osmolality 285.0 Calcium 8.9 Discharge instruction Diet regular Activity as started tolerated Medications Current Medication(s) Medication Instructions Recorded Confirmed Type Blood-Glucose Meter [Contour Next 1 ea AC #100 ea 06/08/17 11/12/18 Rx Ez] nitroglycerin 0.4 mg sublingual 0.4 mg SL Q5-15M PRN #6 tab 10/05/17 11/12/18 Rx tablet multivitamin capsule 1 cap PO QDAY 11/21/17 11/12/18 History chlorthalidone 25 mg tablet 12.5 mg PO QDAY #90 tab 09/28/18 11/12/18 Rx dapagliflozin 5 mg-metformin ER 1 tab PO BID #180 tab 09/28/18 11/12/18 Rx 1,000 mg tablet,extended release 24hr gabapentin 300 mg capsule 300 mg PO BEDTIME #90 cap 09/28/18 11/12/18 Rx levothyroxine 100 mcg tablet 100 mcg PO QDAY #90 tab 09/28/18 11/12/18 Rx liraglutide 0.6 mg/0.1 mL (18 mg/3 1.2 mg SUBCUT DAILY #9 ml 09/28/18 11/12/18 Rx mL) subcutaneous pen injector methocarbamol 750 mg tablet 750 mg PO TID PRN #90 tab 09/28/18 11/12/18 Rx metoprolol tartrate 100 mg tablet 100 mg PO QDAY #90 tab 09/28/18 11/12/18 Rx quinapril 40 mg tablet 40 mg PO BID #180 tab 09/28/18 11/12/18 Rx rizatriptan 10 mg tablet 10 mg PO PRN #9 tab 09/28/18 11/12/18 Rx simvastatin 40 mg tablet 40 mg PO QHS #90 tab 09/28/18 11/12/18 Rx vilazodone 40 mg tablet 40 mg PO QDAY #90 tab 09/28/18 11/12/18 Rx zolpidem 10 mg tablet 10 mg PO QHS PRN #90 tab 09/28/18 11/12/18 Rx hydrocortisone 2.5 % topical cream 1 applic TOPICAL BID-QID PRN #20 g 11/01/18 11/12/18 Rx Insulin Glargine,Hum.rec.anlog 20 unit SUBCUT QHS 11/09/18 11/12/18 History [Toukoki Apple] Blood Sugar Diagnostic [Contour 0 unit .ROUTE .MEDSUPPLY 11/12/18 11/12/18 History Test Strip] lorazepam 1 mg tablet 2 mg PO QPM PRN #60 tab 11/12/18 Rx Amoxicillin/Potassium Clav 1 ea PO BID #6 tab 11/16/18 Rx [Augmentin 875-125 Tablet] oxyCODONE/APAP 10/325 Tab 1 - 2 ea PO QID PRN #20 tab 11/16/18 Rx [Percocet 10/325 Tab] Follow-up with PCP 1-2 weeks follow-up with Dr. López in 1-2 weeks Condition at discharge was stable for discharge Exam - Vitals Vital Signs: Vital Signs Temperature 97.1 F Temperature Source Temporal Artery Scan Pulse Rate [Telemetry] 81 Pulse Rate [Apical] 80 Pulse Rate [Pulse Oximeter] 72 Pulse Rate 70 Respiratory Rate 20 Blood Pressure [Left Arm] 134/79 Blood Pressure [Right Arm] 127/77 Blood Pressure 119/78 Pulse Ox 92 Oxygen Flow Rate 4 Oxygen Delivery Method Nasal Cannula Height 5 ft 2 in Weight 299 lb - General General Appearance: No Acute Distress, Cooperative, Morbidly Obese - Head Head Exam: Normal Inspection - Eye Eye Exam: POSITIVE: Normal Appearance - ENT ENT Exam: POSITIVE: Normal Exam - Neck Neck Exam: Normal Inspection - Respiratory Respiratory Exam: POSITIVE: Clear to Auscultation - Bilaterally - Cardiovascular Cardiovascular Exam: POSITIVE: RRR - GI/Abdominal GI/Abdominal Exam: POSITIVE: Normal Bowel Sounds, Non Tender, Non Distended, Soft, No Organomegaly - Rectal Rectal Exam: POSITIVE: Deferred - External Exam: POSITIVE: Deferred - Extremities Extremities Exam: POSITIVE: Normal Inspection - Neurological Neurological Exam: POSITIVE: Alert, Oriented x 3, CN II-XII Intact, Speech Intact / Clear, Moves All Extremities Equally - Psychiatric Psychiatric Exam: POSITIVE: Flat Affect Patient Problems - Patient Problem List (1) Perforated abdominal viscus Status: Acute Category: Medical (2) Hypertension Status: Acute Code(s): I10 - Essential (primary) hypertension Category: Medical (3) Hypothyroid Status: Chronic Code(s): E03.9 - Hypothyroidism, unspecified Qualifiers: Hypothyroidism type: unspecified Qualified Code(s): E03.9 - Hypothyroidism, unspecified Category: Medical (4) Diabetes mellitus type II, controlled Status: Chronic Comment: Blood sugars well controlled. No changes here. Code(s): E11.9 - Type 2 diabetes mellitus without complications Category: Medical (5) Hypoxia Status: Acute Code(s): R09.02 - Hypoxemia Category: Medical
== END 2018-11-16 14:50 | disposition home or self-care (01) | DRG 326 ==
LOC: ER 21:55 → MED/SURG 21:55 → OPS 11-12 15:06 → MED/SURG 11-12 15:08 → OPS 11-12 18:15 → MED/SURG 11-14 09:15
PROVIDERS: ADMIT Internal Medicine; ATTEND Internal Medicine